=== PATIENT | female | born 1945 | race Two or more races ===

== ENCOUNTER → 2017-04-07 | Outpatient (CLI) | payer MEDICARE, OTHER ==
[2015-12-08 15:30] VITALS: BP 185/68
[~2017-04-07] MED LIST: HYDR-971 PO
[2017-04-07 10:59] LABS: ALBUMIN 3.8 g/dL (3.4-5.0); CALCIUM 9.3 mg/dL (8.5-10.1); CREATININE 1.1 mg/dL (0.6-1.0); GFR 49.2; PHOSPHORUS 4.1 mg/dL (2.6-4.7); POTASSIUM 4.8 mmol/L (3.5-5.1)
[2017-04-07 11:03] LABS: HEMATOCRIT 38.7 % (36.0-47.0)
[2017-04-07 20:12] LABS: MICRO CREAT RATIO 58.7 mg/g creat (0.0-30.0); MICROALB RD UR 65.3 ug/mL (Not Estab.); PROTEIN RANDOM URINE 18.8 mg/dL (Not Estab.)
[2017-04-08 13:12] LABS: CALCIUM PTH 9.3 mg/dL (8.7-10.3); CREATININE PTH 1.05 mg/dL (0.57-1.00); PTH INTACT 56 pg/mL (15-65)
== END | disposition home or self-care (01) ==
LOC: LAB 09:35
PROVIDERS: ATTEND Internal Medicine Nephrology
DX: I12.9 Hypertensive chronic kidney disease with stage 1 through stage 4 chronic kidney disease, or unspecified chronic kidney disease (principal); N18.3 Chronic kidney disease, stage 3 (moderate); E11.22 Type 2 diabetes mellitus with diabetic chronic kidney disease; E11.29 Type 2 diabetes mellitus with other diabetic kidney complication; N25.81 Secondary hyperparathyroidism of renal origin; R60.0 Localized edema; R80.1 Persistent proteinuria, unspecified
CPT/HCPCS: 36415; 80069; 82043; 82570; 83735; 83970; 84156; 85014; 85018

== ENCOUNTER 2017-07-10 12:20 | Emergency (ER) | payer MEDICARE, OTHER ==
[~2017-07-10] VITALS: Ht 160 cm; Wt 82.6 kg
--- NOTE | 2017-07-10 12:35 | EKG ---
[address] [address] Test Date: 2017-07-10 Test Time: 12:30:50 Pat Name: ELSA FLORES Department: Room: Gender: F Demo Event Specialist: MARGO : 1945 Requested By: FLORES STOCKTON Order Number: [id number] Reading MD: Measurements Intervals [place] Rate: 68 P: 0 MA: 212 QRS: 8 QRSD: 84 T: 38 QT: 418 QTc: 449 Interpretive Statements SINUS RHYTHM QRS(T) CONTOUR ABNORMALITY CONSISTENT WITH INFERIOR INFARCT PROBABLY OLD ABNORMAL ECG RI6.01 Compared to ECG 07/28/2011 14:28:33 No significant changes
[2017-07-10] MEDS ORDERED: IV NORMAL SALINE 1,000ML 1,000 ML IV SCH (13:02)
[2017-07-10 13:18] LABS: BASO % 0 % (0-3); EOS # 0.1 x10^3/uL (0.0-0.7); EOS % 2 % (0-3); HEMATOCRIT 38.4 % (36.0-47.0); LYMPH # 1.2 x10^3/uL (1.0-4.8); LYMPH % 23 % (24-48); MEAN CORPUSCULAR HEMOGLOBIN 31 pg (25-35); MEAN CORPUSCULAR HGB CONC 34 g/dL (31-37); MEAN CORPUSCULAR VOLUME 90 fL (79-100); MONO # 0.5 x10^3/uL (0.0-1.1); MONO % 9 % (0-9); NEUT # 3.3 x10^3uL (1.8-7.7); NEUT % 66 % (31-73); PLATELET COUNT 179 x10^3/uL (140-400); RED BLOOD COUNT 4.25 x10^6/uL (3.50-5.40); RED CELL DISTRIBUTION WIDTH 12.7 % (11.5-14.5)
--- NOTE | 2017-07-10 13:21 | RAD ---
EXAM: Chest, single view. HISTORY: Chest pain. COMPARISON: 12/08/2015 FINDINGS: A frontal view of the chest is obtained. There is no infiltrate, effusion or pneumothorax. The heart is normal in size. There is evidence of prior CABG. IMPRESSION: No acute pulmonary finding. Electronically signed by: Vaishali Whipple MD (07/10/2017 1:18 PM) [facility] [place]
[2017-07-10 13:28] LABS: ALBUMIN 3.8 g/dL (3.4-5.0); ALBUMIN/GLOBULIN RATIO 1.1 (1.0-1.7); CALCIUM 9.1 mg/dL (8.5-10.1); CREATININE 1.2 mg/dL (0.6-1.0); GFR 44.4; MAGNESIUM 2.6 mg/dL (1.8-2.4); POTASSIUM 5.4 mmol/L (3.5-5.1); TOTAL BILIRUBIN 0.4 mg/dL (0.2-1.0); TOTAL PROTEIN 7.3 g/dL (6.4-8.2)
[2017-07-10] MEDS ORDERED: ONDANSETRON ODT 4 MG TAB.RAPDIS PO ONE (13:30)
[2017-07-10 14:32] LABS: BILIRUBIN,URINE NEG (NEG); CLARITY,URINE CLEAR; COLOR,URINE YELLOW; GLUCOSE,URINE 500 mg/dL (NEG)
[2017-07-10 14:33] LABS: BACTERIA,URINE 0 /HPF (0-FEW); NITRITE,URINE NEG (NEG); RBC,URINE 0 /HPF (0-2); SQUAMOUS EPITHELIAL CELL,UR OCC /LPF; UROBILINOGEN,URINE 0.2 mg/dL (0.2 mg/dL); WBC,URINE RARE /HPF (0-4)
--- NOTE | 2017-07-10 14:53 | PHYS DOC ---
Past History Past Medical History: CAD, Diabetes, DVT, Hypertension, DC Past Surgical History: Coronary Bypass Surgery, Hysterectomy Alcohol Use: None Drug Use: None Adult General Chief Complaint Chief Complaint: NAUSEA/VOMITING/DIARRHEA HPI HPI 72-year-old female presents with nausea and dizziness the last 2 days. The dizziness seems to occur when she stands up too quickly. The nausea has also caused her to have some feeling of flushing and mild chest pressure. She has a history of cardiac disease, so she was worried and came to the ED. She denies overt chest pain, neck pain, or back pain. These episodes last for around 10 minutes. Over the same time period, she has had a couple episodes of loose stools. No fever or chills. The patient also admits to being diabetic with "mostly controlled" blood sugar. She is not on insulin. She has not been admitted for DKA in the past. Review of Systems Review of Systems Constitutional: Denies fever or chills [] Eyes: Denies change in visual acuity, redness, or eye pain [] HENT: Denies nasal congestion or sore throat [] Respiratory: Denies cough or shortness of breath [] Cardiovascular: No additional information not addressed in HPI [] GI: Denies abdominal pain, bloody stools or diarrhea [] : Denies dysuria or hematuria [] Musculoskeletal: Denies back pain or joint pain [] Integument: Denies rash or skin lesions [] Neurologic: Denies headache, focal weakness or sensory changes [] Endocrine: Denies polyuria or polydipsia [] All other systems were reviewed and found to be within normal limits, except as documented in this note. Current Medications Current Medications Current Medications Medications (Trade) Dose Ordered Sig/Dennis Start Time Stop Time Status Last Admin Dose Admin Ondansetron HCl (Zofran Odt) 4 mg 1X ONCE 07/10/17 13:30 07/10/17 13:31 DC 07/10/17 13:50 4 MG Sodium Chloride 1,000 ml @ 1,000 mls/hr Q1H 07/10/17 13:02 07/10/17 14:01 DC 07/10/17 13:19 1,000 MLS/HR Allergies Allergies Allergies Coded Allergies Type Severity Reaction Last Updated Verified Penicillins Allergy Unknown 12/08/15 Yes latex Allergy Unknown 12/08/15 Yes morphine Allergy Unknown 12/08/15 Yes Physical Exam Physical Exam Constitutional: Well developed, well nourished, no acute distress, non-toxic appearance. [] HENT: Normocephalic, atraumatic, bilateral external ears normal, oropharynx moist, no oral exudates, nose normal. [] Eyes: PERRLA, EOMI, conjunctiva normal, no discharge. [] Neck: Normal range of motion, no tenderness, supple, no stridor. [] Cardiovascular:Heart rate regular rhythm, no murmur [] Lungs & Thorax: Bilateral breath sounds clear to auscultation [] Abdomen: Bowel sounds normal, soft, no tenderness, no masses, no pulsatile masses. [] Skin: Warm, dry, no erythema, no rash. [] Back: No tenderness, no CVA tenderness. [] Extremities: No tenderness, no cyanosis, no clubbing, ROM intact, no edema. [] Neurologic: Alert and oriented X 3, normal motor function, normal sensory function, no focal deficits noted. [] Psychologic: Affect normal, judgement normal, mood normal. [] Current Patient Data Vital Signs Vital Signs Date Time Temp Pulse Resp B/P (MAP) Pulse Ox O2 Delivery O2 Flow Rate FiO2 07/10/17 12:26 98.4 60 18 97 Room Air Lab Results Laboratory Tests Test 07/10/17 12:56 07/10/17 14:17 White Blood Count 5.0 x10^3/uL (4.0-11.0) Red Blood Count 4.25 x10^6/uL (3.50-5.40) Hemoglobin 13.0 g/dL (12.0-15.5) Hematocrit 38.4 % (36.0-47.0) Mean Corpuscular Volume 90 fL (79-100) Mean Corpuscular Hemoglobin 31 pg (25-35) Mean Corpuscular Hemoglobin Concent 34 g/dL (31-37) Red Cell Distribution Width 12.7 % (11.5-14.5) Platelet Count 179 x10^3/uL (140-400) Neutrophils (%) (Auto) 66 % (31-73) Lymphocytes (%) (Auto) 23 % (24-48) L Monocytes (%) (Auto) 9 % (0-9) Eosinophils (%) (Auto) 2 % (0-3) Basophils (%) (Auto) 0 % (0-3) Neutrophils # (Auto) 3.3 x10^3uL (1.8-7.7) Lymphocytes # (Auto) 1.2 x10^3/uL (1.0-4.8) Monocytes # (Auto) 0.5 x10^3/uL (0.0-1.1) Eosinophils # (Auto) 0.1 x10^3/uL (0.0-0.7) Basophils # (Auto) 0.0 x10^3/uL (0.0-0.2) Sodium Level 135 mmol/L (136-145) L Potassium Level 5.4 mmol/L (3.5-5.1) H Chloride Level 99 mmol/L (98-107) Carbon Dioxide Level 28 mmol/L (21-32) Anion Gap 8 (6-14) Blood Urea Nitrogen 28 mg/dL (7-20) H Creatinine 1.2 mg/dL (0.6-1.0) H Estimated GFR (Cockcroft-Gault) 44.4 BUN/Creatinine Ratio 23 (6-20) H Glucose Level 313 mg/dL (70-99) H Calcium Level 9.1 mg/dL (8.5-10.1) Magnesium Level 2.6 mg/dL (1.8-2.4) H Total Bilirubin 0.4 mg/dL (0.2-1.0) Aspartate Amino Transferase (AST) 22 U/L (15-37) Alanine Aminotransferase (ALT) 29 U/L (14-59) Alkaline Phosphatase 96 U/L (46-116) Troponin I Quantitative < 0.017 ng/mL (0-0.055) Total Protein 7.3 g/dL (6.4-8.2) Albumin 3.8 g/dL (3.4-5.0) Albumin/Globulin Ratio 1.1 (1.0-1.7) Urine Collection Type Unknown Urine Color Yellow Urine Clarity Clear Urine pH 7.0 Urine Specific [place] 1.010 Urine Protein Neg (NEG-TRACE) Urine Glucose (UA) 500 mg/dL (NEG) Urine Ketones (Stick) Neg mg/dL (NEG) Urine Blood Neg (NEG) Urine Nitrite Neg (NEG) Urine Bilirubin Neg (NEG) Urine Urobilinogen Dipstick 0.2 mg/dL (0.2 mg/dL) Urine Leukocyte Esterase Neg (NEG) Urine RBC 0 /HPF (0-2) Urine WBC Rare /HPF (0-4) Urine Squamous Epithelial Cells Occ /LPF Urine Bacteria 0 /HPF (0-FEW) EKG EKG Normal sinus rhythm, rate 68, axis, no ST elevation or depression.[] Radiology/Procedures Radiology/Procedures EXAM: Chest, single view. HISTORY: Chest pain. COMPARISON: 12/08/2015 FINDINGS: A frontal view of the chest is obtained. There is no infiltrate, effusion or pneumothorax. The heart is normal in size. There is evidence of prior CABG. IMPRESSION: No acute pulmonary finding. Electronically signed by: Vaishali Whipple MD (07/10/2017 1:18 PM) [facility] [place] DICTATED AND SIGNED BY: VAISHALI WHIPPLE MD DATE: 07/10/17 1318 [] Course & Med Decision Making Course & Med Decision Making Pertinent Labs and Imaging studies reviewed. (See chart for details) The patient's glucose is 313 over her anion gap is 8. I discussed with the patient closely monitoring her blood sugar and reporting results to her PCP as she may need medication adjustment. I believe her dizzy spells are likely related to orthostatic hypotension as they do seem to be positional more I talk to the patient about it. I am unsure what has caused her nausea, but it is improved with Zofran. The patient feels well enough to go home. [] Dragon Disclaimer Dragon Disclaimer This electronic medical record was generated, in whole or in part, using a voice recognition dictation system. Departure Departure: Referrals: MARSHA LARA MD (PCP) FLORES STOCKTON DO July 10, 2017 14:53
[2017-07-10 15:45] VITALS: BP 132/72
== END 2017-07-10 16:00 | disposition home or self-care (01) ==
LOC: ER 12:20
DX: R42 Dizziness and giddiness (principal); R19.7 Diarrhea, unspecified; R11.0 Nausea; E11.9 Type 2 diabetes mellitus without complications; I10 Essential (primary) hypertension; I25.2 Old myocardial infarction; I25.810 Atherosclerosis of coronary artery bypass graft(s) without angina pectoris; Z88.5 Allergy status to narcotic agent; Z88.0 Allergy status to penicillin; Z91.040 Latex allergy status
CPT/HCPCS: 36415; 71045; 80053; 81001; 83735; 84443; 84484; 85025; 93005; 96360; 99285; Q0162; J7030

== ENCOUNTER → 2019-07-20 | Outpatient (CLI) | payer OTHER, MEDICAID ==
[~2019-07-20] MED LIST changes: +HYDR-3165 PO; -HYDR-971 PO
[2019-07-20 19:05] LABS: BASO % 0 % (0-3); EOS # 0.1 x10^3/uL (0.0-0.7); EOS % 3 % (0-3); HEMATOCRIT 35.2 % (36.0-47.0); HEMOGLOBIN 11.6 g/dL (12.0-15.5); LYMPH # 1.2 x10^3/uL (1.0-4.8); LYMPH % 23 % (24-48); MEAN CORPUSCULAR HEMOGLOBIN 31 pg (25-35); MEAN CORPUSCULAR HGB CONC 33 g/dL (31-37); MEAN CORPUSCULAR VOLUME 93 fL (79-100); MONO # 0.5 x10^3/uL (0.0-1.1); MONO % 10 % (0-9); NEUT # 3.3 x10^3uL (1.8-7.7); NEUT % 64 % (31-73); PLATELET COUNT 168 x10^3/uL (140-400); RED CELL DISTRIBUTION WIDTH 13.9 % (11.5-14.5); WHITE BLOOD COUNT 5.1 x10^3/uL (4.0-11.0)
[2019-07-20 19:25] LABS: CALCIUM 8.8 mg/dL (8.5-10.1); CREATININE 1.2 mg/dL (0.6-1.0); GFR 44.2; POTASSIUM 4.8 mmol/L (3.5-5.1)
== END | disposition home or self-care (01) ==
LOC: LAB 17:58
PROVIDERS: ATTEND Family Medicine
DX: I50.33 Acute on chronic diastolic (congestive) heart failure (principal)
CPT/HCPCS: 36415; 80048; 83880; 84484; 85025

== ENCOUNTER → 2020-01-04 | Outpatient (CLI) | payer OTHER, MEDICAID ==
--- NOTE | 2020-01-04 16:04 | RAD ---
EXAM: Left lower extremity venous Doppler sonogram. HISTORY: Pain and swelling. TECHNIQUE: Tucker scale and color Doppler sonographic evaluation of the left lower extremity veins with spectral waveform analysis was performed. FINDINGS: The exam is limited due to patient discomfort. Compression and augmentation maneuvers could not be performed. There is normal color flow and there are normal spectral waveforms within the common femoral, superficial femoral, popliteal, posterior tibial and greater saphenous veins. IMPRESSION: No Doppler evidence of lower extremity deep venous thrombosis, with limited evaluation due to patient discomfort. Electronically signed by: Vaishali Whipple MD (01/04/2020 4:01 PM) [id number]
== END ==
LOC: US 15:28
PROVIDERS: ATTEND Family Medicine
DX: R22.42 Localized swelling, mass and lump, left lower limb (principal)
CPT/HCPCS: 93971

== ENCOUNTER 2021-02-12 16:31 | Emergency (ER) | payer OTHER, MEDICAID ==
[~2021-02-12] VITALS: Ht 160 cm; Wt 100.5 kg
[2021-02-12] MEDS ORDERED: NITROGLYCERIN SUBLINGUAL 0.4 MG BOTTLE OF 25. SL ONE ×2 (16:47→19:26)
--- NOTE | 2021-02-12 16:49 | PHYS DOC ---
Past History Past Medical History: CAD, Diabetes, DVT, High Cholesterol, Hypertension, ME (ELMA AYERS DO) Past Surgical History: Coronary Bypass Surgery, Hysterectomy (ELMA AYERS DO) Alcohol Use: None Drug Use: None (ELMA AYERS DO) Adult General Chief Complaint Chief Complaint: CHEST PAIN HPI HPI Patient is a 75yo female presenting for chest pain. Onset was 2 hours prior to arrival. Nothing known makes beetter or worse. It is substernal and radiates to left shoulder, is described as pressure. This has been waxing and waning for several weeks but became more constant today and never went away despite x1 nitro use at home prompting patient to be brought in by daughter. Daughter states patient has extensive cardiac history significant for CABG x3 vessel and is managed by [facility] cardiology. Patient saw them ~4 weeks ago and at that time, it was discussed that if patient was continuing to have ongoing symptoms a cardiac cath might soon be indicated (ELMA AYERS DO) Review of Systems Review of Systems Fourteen body systems of review of systems have been reviewed. See HPI for pertinent positives and negative responses, other knapp all other systems are negative, non-pertinent or non-contributory (ELMA AYERS DO) Current Medications Current Medications Current Medications Medications (Trade) Dose Ordered Sig/Dennis Start Time Stop Time Status Last Admin Dose Admin Nitroglycerin (Nitrostat) 0.4 mg STK-MED ONCE 02/12/21 16:47 02/12/21 16:47 DC (ELMA AYERS DO) Allergies Allergies Allergies Coded Allergies Type Severity Reaction Last Updated Verified Penicillins Allergy Unknown 12/08/15 Yes latex Allergy Unknown 12/08/15 Yes morphine Allergy Unknown 12/08/15 Yes (ELMA AYERS DO) Physical Exam Physical Exam Constitutional: Well developed, well nourished, no acute distress, non-toxic a ppearance. [] HENT: Normocephalic, atraumatic, bilateral external ears normal, oropharynx moist, no oral exudates, nose normal. [] Eyes: PERRLA, EOMI, conjunctiva normal, no discharge. [] Neck: Normal range of motion, no tenderness, supple, no stridor. [] Cardiovascular:Heart rate regular rhythm, no murmur [] Lungs & Thorax: Bilateral breath sounds clear to auscultation [] Abdomen: Bowel sounds normal, soft, no tenderness, no masses, no pulsatile masses. [] Skin: Warm, dry, no erythema, no rash. [] Back: No tenderness, no CVA tenderness. [] Extremities: No tenderness, no cyanosis, no clubbing, ROM intact, no edema. [] Neurologic: Alert and oriented X 3, normal motor function, normal sensory function, no focal deficits noted. [] Psychologic: Anxious affect and mood (ELMA AYERS DO) Current Patient Data Vital Signs Vital Signs Date Time Temp Pulse Resp B/P (MAP) Pulse Ox O2 Delivery O2 Flow Rate FiO2 02/12/21 16:31 98.3 74 16 155/66 (95) 100 02/12/21 18:04 Room Air Vital Signs Date Time Temp Pulse Resp B/P (MAP) Pulse Ox O2 Delivery O2 Flow Rate FiO2 02/12/21 18:04 73 12 144/58 (86) 98 Room Air 02/12/21 16:31 98.3 Lab Results Laboratory Tests Test 02/12/21 16:50 White Blood Count 5.1 x10^3/uL Red Blood Count 3.65 x10^6/uL Hemoglobin 11.3 g/dL Hematocrit 33.9 % Mean Corpuscular Volume 93 fL Mean Corpuscular Hemoglobin 31 pg Mean Corpuscular Hemoglobin Concent 33 g/dL Red Cell Distribution Width 13.2 % Platelet Count 193 x10^3/uL Neutrophils (%) (Auto) 56 % Lymphocytes (%) (Auto) 31 % Monocytes (%) (Auto) 12 % Eosinophils (%) (Auto) 2 % Basophils (%) (Auto) 0 % Neutrophils # (Auto) 2.8 x10^3uL Lymphocytes # (Auto) 1.6 x10^3/uL Monocytes # (Auto) 0.6 x10^3/uL Eosinophils # (Auto) 0.1 x10^3/uL Basophils # (Auto) 0.0 x10^3/uL Prothrombin Time 15.2 SEC Prothromb Time International Ratio 1.5 Activated Partial Thromboplast Time 34 SEC Sodium Level 136 mmol/L Potassium Level 4.5 mmol/L Chloride Level 97 mmol/L Carbon Dioxide Level 28 mmol/L Anion Gap 11 Blood Urea Nitrogen 59 mg/dL Creatinine 2.4 mg/dL Estimated GFR (Cockcroft-Gault) 19.8 Glucose Level 397 mg/dL Calcium Level 8.6 mg/dL Troponin I High Sensitivity 13 ng/L TB-Tdx-O-Type Natriuretic Peptide 641 pg/mL Current Medications Medications (Trade) Dose Ordered Sig/Dennis Route PRN Reason Start Time Stop Time Status Last Admin Dose Admin Nitroglycerin (Nitrostat) 0.4 mg STK-MED ONCE SL 02/12/21 16:47 02/12/21 16:47 DC Aspirin (Aspirin Chewable) 162 mg 1X ONCE PO 02/12/21 17:00 02/12/21 17:01 DC 02/12/21 17:04 Heparin Sodium/ Dextrose 250 ml @ 10 mls/hr CONT PRN IV SEE I/O RECORD 02/12/21 18:30 02/12/21 18:40 Heparin Sodium (Porcine) (Heparin Sodium) 4,000 unit 1X ONCE IV 02/12/21 18:30 02/12/21 18:31 DC 02/12/21 18:38 Heparin Sodium (Porcine) (Heparin Sodium) 2,500 unit PRN Q6HRS PRN IV FOR PTT LESS THAN 24 SECONDS 02/12/21 18:30 Fentanyl Citrate (Fentanyl 2ml Vial) 25 mcg 1X ONCE IVP 02/12/21 18:30 02/12/21 18:35 DC Sodium Chloride 1,000 ml @ 1,000 mls/hr 1X ONCE IV 02/12/21 18:30 02/12/21 19:29 (EMLA AYERS DO) EKG EKG EKG ordered and interpreted by myself at 1636 hrs. as sinus rhythm at 78 bpm, unremarkable intervals, no axis deviation, nonspecific ST wave abnormalities noted in leads I, II, aVL, V2 and V3, no STEMI (ELMA AYERS DO) Radiology/Procedures Radiology/Procedures EXAMINATION: XR CHEST 1V. HISTORY: 75 years Female Reason: CHEST PAIN / : . . COMPARISON: July 10, 2017. Findings: Chronic appearing interstitial thickening is seen with no focal airspace consolidation. The heart size is normal. There is no effusion or pneumothorax. The mediastinum and hetal appear unremarkable. Sternotomy wires noted. Impression: No acute process. Electronically signed by: Miguel Malik MD (02/12/2021 5:06 PM) [id number] (ELMA AYERS DO) Heart Score C/O Chest Pain: Yes HEART Score for Chest Pain: HEART Score for Chest Pain Response (Comments) Value History Highly Suspicious 2 ECG Nonspecific Repolarizatio 1 Age > 65 2 Risk Factors >3 Risk Factors or Hx CAD 2 Troponin < Normal Limit 0 Total 7 Risk Factors: Risk Factors: DM, Current or recent (<one month) smoker, HTN, HLP, family history of CAD, obesity. Risk Scores: Risk Factors: DM, Current or recent (<one month) smoker, HTN, HLP, family history of CAD, obesity. (ELMA AYERS DO) Course & Med Decision Making Course & Med Decision Making ABCs unremarkable HPI, PE and ER workup concerning for ST-depression on initial EKG that improved after x2 nitro administration in ER. Patient subsequently received a total of 324mg ASA and started on heparin drip in ER given concern for unstable angina in high-risk patient Call was made to [facility] at request of patient and daughter to request hospital transfer. At this time in care, my shift was ending. Comprehensive sign out given to Dr. Gomez. please defer to his documentation regarding future care of patient in ER setting. Given the high probability of imminent or life threatening deterioration of the patients condition without intervention, the patient was immediately assessed by myself and the nurse, and cardiac monitoring initiated. The patient was also placed on oxygen and continuous pulse oximetry initiated. During the course of the patients stay, I spent a considerable amount of time at the bedside performing serial re-evaluations of the patients hemodynamic and clinical status because of the recognized potential threat to life or limb in this condition. Clinical management of this patient involved high complexity decision making to assess, manipulate, and support vital organ system failure. I then had a chance to review all of the available laboratory and radiographic studies obtained today, and I also reviewed old records available to me at the time. Sequential vital signs were obtained. Critical care time noted below was time spent engaged in work directly related to the individual patients care, not including time performing procedures; however it does include time spent at the immediate bedside or elsewhere on the floor or unit. TOTAL CRITICAL CARE TIME ELAPSED: 35mins BODY SYSTEM AT HIGHEST RISK: Cardiac. (ELMA AYERS DO) Course & Med Decision Making Patient handed off to me at checkout pending placement for unstable angina. Patient awake alert and oriented no acute distress. Vital signs normal at last check. EKGs remaining suggestive of ischemia but no STEMI. Patient on heparin drip. Patient and family requested to be transferred to . Discussed patient's case with 3 different times and all 3 times denied request for placement. Patient's troponin normal the first 2 times but elevated on the . Patient and family stated that they did not want to be admitted anywhere else and wanted to go to . Offered hold here in the emergency department till bed was found or had an opening but family stated that they wanted to leave here and drive straight to . Advised against this as she was having an ME and could have serious repercussions such as increased pain, or worsening ME, severe illness, disability and in the worst case scenario of leaving here. Patient family signed AMA stating that they understood the risks and regularly here and drive straight to . Called transfer team and made aware that patient did not want to stay here, was leaving here and driving straight to 's emergency department and to make her cardiology team they are aware that she was coming as her recovery operator helper Dr. Al and Dr. Delvin Romero were there and that so she wanted to see. (OTILIA GOMEZ MD) Dragon Disclaimer Dragon Disclaimer This electronic medical record was generated, in whole or in part, using a voice recognition dictation system. (ELMA AYERS DO) Departure Departure: Impression: Primary Impression: Chest pain Additional Impressions: S/P CABG x 3 NSTEMI (non-ST elevated myocardial infarction) Disposition: LEFT AGAINST MEDICAL ADVICE Condition: STABLE Referrals: MARSHA LARA MD (PCP) Patient Instructions: Myocardial Infarction Additional Instructions: Thank you for coming into the emergency department tonight and allowing us to take care of you. Please read the attached information carefully to go back over things we discussed. As we discussed you are having a heart attack and needed to remain on blood thinners and remain here in the emergency department until we can find you a bed. You stated that you did not want to go anywhere else but . As you know we contacted on 3 different occasions and they declined the transfer as they stated they did not have a bed for you but she stated that she did not want to go anywhere else, wanted to leave [facility] and go directly to from here. We had several discussions on the risks of this including worsening pain, worsening heart attack, severe disability and in the worst case scenario. You dante verbalized understanding and was grateful but stated that you get a leave here and drive straight to [facility]. [facility] was called once again on your behalf to let them know that you were coming and that they needed to make your cardiology team aware that you are coming. As we discussed please go directly to [facility] from here. Problem Qualifiers ELMA AYERS DO Feb 12, 2021 16:49 OTILIA GOMEZ MD Feb 13, 2021 02:52
[2021-02-12] MEDS ORDERED: ASPIRIN CHEWABLE 81 MG TABLET. PO ONE (17:00)
--- NOTE | 2021-02-12 17:09 | RAD ---
Site ID: [id number] EXAMINATION: XR CHEST 1V. HISTORY: 75 years Female Reason: CHEST PAIN / : . . COMPARISON: July 10, 2017. Findings: Chronic appearing interstitial thickening is seen with no focal airspace consolidation. The heart size is normal. There is no effusion or pneumothorax. The mediastinum and hetal appear unremarkable. Sternotomy wires noted. Impression: No acute process. Electronically signed by: Miguel Malik MD (02/12/2021 5:06 PM) [id number]
--- NOTE | 2021-02-12 17:16 | EKG ---
[address] [address] Test Date: 2021-02-12 Test Time: 17:04:41 Pat Name: ELSA FLORES Department: Room: Gender: F Tool Grinder Set Up Operator Gear: MELY : 1945 Requested By: ELMA AYERS Order Number: [id number] Reading MD: Chris Mendes Measurements Intervals [place] Rate: 77 P: -1 [place]: 182 QRS: 6 QRSD: 78 T: 113 QT: 392 QTc: 445 Interpretive Statements SINUS RHYTHM LVH WITH REPOLARIZATION ABNORMALITY QRS(T) CONTOUR ABNORMALITY CONSIDER ANTEROLATERAL INFARCT CONSISTENT WITH OLD INFERIOR INFARCT Electronically Signed On 02-14-2021 16:01:54 CHEMICAL TEST ENGINEER by Chris Mendes
[2021-02-12 17:18] LABS: BASO % 0 % (0-3); EOS # 0.1 x10^3/uL (0.0-0.7); EOS % 2 % (0-3); HEMATOCRIT 33.9 % (36.0-47.0); HEMOGLOBIN 11.3 g/dL (12.0-15.5); LYMPH # 1.6 x10^3/uL (1.0-4.8); LYMPH % 31 % (24-48); MEAN CORPUSCULAR HEMOGLOBIN 31 pg (25-35); MEAN CORPUSCULAR HGB CONC 33 g/dL (31-37); MEAN CORPUSCULAR VOLUME 93 fL (79-100); MONO # 0.6 x10^3/uL (0.0-1.1); MONO % 12 % (0-9); NEUT # 2.8 x10^3uL (1.8-7.7); NEUT % 56 % (31-73); PLATELET COUNT 193 x10^3/uL (140-400); RED BLOOD COUNT 3.65 x10^6/uL (3.50-5.40); RED CELL DISTRIBUTION WIDTH 13.2 % (11.5-14.5); WHITE BLOOD COUNT 5.1 x10^3/uL (4.0-11.0)
--- NOTE | 2021-02-12 17:18 | EKG ---
[address] [address] Test Date: 2021-02-12 Test Time: 16:34:43 Pat Name: ELSA FLORES Department: Room: Gender: F Doubler Operator: MELY : 1945 Requested By: ELMA AYERS Order Number: [id number] Reading MD: Chris Mendes Measurements Intervals [place] Rate: 78 P: 34 [place]: 178 QRS: 12 QRSD: 82 T: 130 QT: 388 QTc: 446 Interpretive Statements SINUS RHYTHM QRS(T) CONTOUR ABNORMALITY CONSISTENT WITH INFERIOR INFARCT AGE UNDETERMINED ST & T ABNORMALITY, CONSIDER ANTERIOR ISCHEMIA OR LEFT VENTRICULAR STRAIN LATERAL ISCHEMIA OR LEFT VENTRICULAR STRAIN ABNORMAL ECG Electronically Signed On 02-14-2021 16:04:03 HOT BILLET SHEAR OPERATOR by Chris Mendes
[2021-02-12 17:23] LABS: CALCIUM 8.6 mg/dL (8.5-10.1); CREATININE 2.4 mg/dL (0.6-1.0); GFR 19.8; POTASSIUM 4.5 mmol/L (3.5-5.1)
[2021-02-12] MEDS ORDERED: IV NORMAL SALINE 1,000ML 1,000 ML IV ONE (18:30)
[2021-02-12] MEDS ORDERED: HEPARIN for IV BOLUS 10,000 UNIT/10 ML VIAL. IV ONE (18:30)
[2021-02-12] MEDS ORDERED: HEPARIN for IV BOLUS 10,000 UNIT/10 ML VIAL. IV PRN (18:30)
[2021-02-12] MEDS ORDERED: HEPARIN 25,000UTS/250ML PREMIX 250 ML IV PRN (18:30)
[2021-02-13 02:15] VITALS: BP 133/81
--- NOTE | 2021-02-14 06:42 | EKG ---
[address] [address] Test Date: 2021-02-12 Test Time: 23:49:01 Pat Name: ELSA FLORES Department: Room: Gender: F Tanbark Laborer: BENI : 1945 Requested By: ELMA AYERS Order Number: [id number] Reading MD: Chris Mendes Measurements Intervals [place] Rate: 69 P: 0 [place]: 176 QRS: 2 QRSD: 80 T: 144 QT: 416 QTc: 447 Interpretive Statements SINUS RHYTHM LVH WITH REPOLARIZATION ABNORMALITY Electronically Signed On 02-14-2021 15:44:07 SEXUAL ASSAULT COUNSELLOR by Chris Mendes
--- NOTE | 2021-02-14 06:42 | EKG ---
[address] [address] Test Date: 2021-02-12 Test Time: 20:16:30 Pat Name: ELSA FLORES Department: Room: Gender: F Paste Up Copy Camera Operator: BENI : 1945 Requested By: ELMA AYERS Order Number: [id number] Reading MD: Chris Mendes Measurements Intervals [place] Rate: 72 P: 0 [place]: 164 QRS: 5 QRSD: 78 T: 126 QT: 398 QTc: 437 Interpretive Statements SINUS RHYTHM QRS(T) CONTOUR ABNORMALITY CONSISTENT WITH OLD INFERIOR INFARCT NON SPECIFIC ST-T WAVE CHANGES Electronically Signed On 02-14-2021 15:45:24 CALIBRATION ENGINEER by Chris Mendes
== END 2021-02-13 02:48 | disposition left against medical advice (07) ==
LOC: ER 16:31
DX: I21.4 Non-ST elevation (NSTEMI) myocardial infarction (principal); I25.810 Atherosclerosis of coronary artery bypass graft(s) without angina pectoris; E11.9 Type 2 diabetes mellitus without complications; E78.00 Pure hypercholesterolemia, unspecified; I10 Essential (primary) hypertension; I25.2 Old myocardial infarction; Z20.822 Contact with and (suspected) exposure to COVID-19; Z88.0 Allergy status to penicillin; Z91.040 Latex allergy status; Z88.5 Allergy status to narcotic agent
CPT/HCPCS: 36415; 71045; 80048; 83880; 84484; 85025; 85610; 85730; 87426; 93005; 96361; 96374; 96375; 99285; C9803; J1644; J3010; J7030; U0003